=== PATIENT | male | born 1960 | race Caucasian/White ===

== ENCOUNTER → 2019-02-16 | Outpatient (REF) | payer BC | LOC: M LAB REF 10:29 | PROVIDERS: ATTEND Nurse Practitioner Family | DX: R50.9 Fever, unspecified (principal) ==

== ENCOUNTER 2023-07-24 12:41 | Observation (INO) | payer BC ==
[~2023-07-24] VITALS: Ht 193 cm; Wt 103.7 kg
[~2023-07-24 12:41] MED LIST: CLIN1GEL3 TOP; DOXY100T PO; ECOT81TA5 PO; IBUP-1114 PO; ROSU20TA61 PO; SILO8CAP; ZOLP5TAB PO
[2023-07-24] MEDS ORDERED: ACET-683 PO (12:59)
[2023-07-24] MEDS ORDERED: OXYC-517 PO (12:59)
[2023-07-24] MEDS ORDERED: KETO10TAB PO (12:59)
[2023-07-24] MEDS ORDERED: GABA-1171 PO (12:59)
[2023-07-24] MEDS ORDERED: NS 1,000 ML IV ONE ×3 (13:20→16:40)
[2023-07-24] MEDS ORDERED: ONDANSETRON 4MG 2ML VIAL IV ONE (14:10)
[2023-07-24 14:13] LABS: BASO % 0.2 % (0.0-1.0); EOS # 0.1 10^3/uL (0.0-0.5); EOS % 0.7 % (0.0-3.0); HEMATOCRIT 39.3 % (42.0-52.0); HEMOGLOBIN 13.5 g/dl (13.5-17.5); LYMPH # 0.9 10^3/uL (1.5-5.0); LYMPH % 9.9 % (24.0-44.0); MEAN CORPUSCULAR HEMOGLOBIN 31.9 pg (27.0-33.0); MEAN CORPUSCULAR HGB CONC 34.4 g/dl (32.0-36.5); MEAN CORPUSCULAR VOLUME 92.9 fl (80.0-96.0); MONO # 0.6 10^3/uL (0.0-0.8); MONO % 7.3 % (2.0-8.0); NEUTROPHILS # 7.1 10^3/uL (1.5-8.5); NEUTROPHILS % 81.7 % (36.0-66.0); PLATELET COUNT, AUTOMATED 187 10^3/uL (150-450); RED BLOOD COUNT 4.23 10^6/uL (4.30-6.10); WHITE BLOOD COUNT 8.8 10^3/uL (4.0-10.0)
[2023-07-24 14:36] LABS: LIPASE 26 U/L (12-53)
[2023-07-24 14:38] LABS: ALBUMIN 3.7 G/DL (3.2-5.2); ALKALINE PHOSPHATASE 47 U/L (46-116); ALT/SGPT 25 U/L (7.0-40); AMYLASE 26 U/L (30-118); AST/SGOT 33 U/L (<34); BILIRUBIN,DIRECT 0.3 MG/DL (<0.4); BILIRUBIN,TOTAL 0.8 MG/DL (0.3-1.2); BLOOD UREA NITROGEN 10 MG/DL (9-23); CALCIUM LEVEL 8.7 MG/DL (8.3-10.6); CARBON DIOXIDE LEVEL 30 MMOL/L (20-31); CHLORIDE LEVEL 104 MMOL/L (98-107); GLOMERULAR FILTRATION RATE > 60.0 (>49); GLUCOSE, FASTING 96 MG/DL (74-106); SODIUM LEVEL 140 MMOL/L (136-145); TOTAL PROTEIN 6.2 G/DL (5.7-8.2)
[2023-07-24] MEDS ORDERED: ISOVUE-370 76% 100ML VIAL As Ordered ONE (15:30)
[2023-07-24] MEDS ORDERED: METOCLOPRAMIDE INJ 10MG/2ML VIAL IV ONE (16:15)
[2023-07-24] MEDS ORDERED: ACETAMINOPHEN TAB 650MG DOSE (2X325MG) PO PRN (17:00)
[2023-07-24] MEDS ORDERED: KETOROLAC 30 MG/ML 1ML VIAL IV PRN ×2 (17:00)
[2023-07-24] MEDS ORDERED: MOM 30ML SUSPENSION UDC PO PRN (17:00)
[2023-07-24] MEDS ORDERED: ONDANSETRON 4MG ORAL DISINTEGRATING TAB SL PRN (17:00)
[2023-07-24 17:26] LABS: RSV AMPLIFICATION NEGATIVE (NEGATIVE)
[2023-07-24] MEDS ORDERED: HOME MED LIST COMPLETE! XX SCH (18:05)
[2023-07-24 18:10] VITALS: BP 122/72; TEMP 98.4; O2SAT 95
[2023-07-24 20:00] VITALS: BP 128/69; TEMP 98; O2SAT 93
[2023-07-24] MEDS ORDERED: SENNA 8.6 MG TAB (SENOKOT) PO ONE (20:00)
[2023-07-24] MEDS ORDERED: BISACODYL 10MG SUPP PR ONE (20:00)
[2023-07-24] MEDS: DOCUSATE SODIUM 100MG CAPSULE PO SCH (20:10)
[2023-07-25 06:00] VITALS: BP 118/70; TEMP 98.5; O2SAT 93
[2023-07-25] MEDS ORDERED: GABAPENTIN 100 MG CAP PO SCH (06:00)
[2023-07-25 06:37] LABS: HEMATOCRIT 35.1 % (42.0-52.0); MEAN CORPUSCULAR HEMOGLOBIN 31.7 pg (27.0-33.0); MEAN CORPUSCULAR HGB CONC 34.2 g/dl (32.0-36.5); MEAN CORPUSCULAR VOLUME 92.6 fl (80.0-96.0); PLATELET COUNT, AUTOMATED 168 10^3/uL (150-450); RED BLOOD COUNT 3.79 10^6/uL (4.30-6.10); WHITE BLOOD COUNT 7.6 10^3/uL (4.0-10.0)
[2023-07-25 07:01] LABS: BLOOD UREA NITROGEN 12 MG/DL (9-23); CALCIUM LEVEL 7.8 MG/DL (8.3-10.6); CARBON DIOXIDE LEVEL 27 MMOL/L (20-31); CHLORIDE LEVEL 107 MMOL/L (98-107); CREATININE FOR GFR 0.77 MG/DL (0.70-1.30); GLOMERULAR FILTRATION RATE > 60.0 (>49); GLUCOSE, FASTING 92 MG/DL (74-106); SODIUM LEVEL 140 MMOL/L (136-145)
[2023-07-25] MEDS: DOCUSATE SODIUM 100MG CAPSULE PO SCH (08:48)
[2023-07-25] MEDS ORDERED: ASPIRIN 81MG ENTERIC TABLET PO SCH (09:00)
[2023-07-25] MEDS ORDERED: BISACODYL 10MG SUPP PR SCH (09:00)
[2023-07-25] MEDS ORDERED: SENNA 8.6 MG TAB (SENOKOT) PO SCH (09:00)
[2023-07-25] MEDS ORDERED: SENN-50 PO (09:36)
[2023-07-25] MEDS ORDERED: KETO10TAB PO (09:36)
[2023-07-25] MEDS ORDERED: ACETAMINOPHEN 500 MG TAB PO SCH (14:00)
[2023-07-25] MEDS ORDERED: ROSUVASTATIN 10 MG TAB (CRESTOR) PO SCH (21:00)
== END 2023-07-25 11:00 | disposition home or self-care (01) ==
LOC: M ED 12:41 → M ED INP 12:42 → M MS5PR 18:05
PROVIDERS: ADMIT Student in an Organized Health Care Education/Training Program; ATTEND Student in an Organized Health Care Education/Training Program
DX: N13.30 Unspecified hydronephrosis (principal); R11.2 Nausea with vomiting, unspecified; Z85.46 Personal history of malignant neoplasm of prostate; Z92.3 Personal history of irradiation; E78.5 Hyperlipidemia, unspecified; Z98.890 Other specified postprocedural states; Z79.899 Other long term (current) drug therapy; Z79.82 Long term (current) use of aspirin; Z79.891 Long term (current) use of opiate analgesic
CPT/HCPCS: 36415; 74018; 74177; 80047; 80048; 80076; 81001; 82150; 83605; 83690; 85025; 85027; 87631; 93041; 96374; 96375; 99285; J1885; J2405; J2765; Q9967

== ENCOUNTER → 2023-09-09 | Outpatient (CLI) | payer BC ==
[~2023-09-09] MED LIST changes: +ACET-683 PO; +FUROSEMIDE 20MG/2ML VIAL As Ordered ONE; +GABA-1171 PO; +KETO10TAB PO; +OXYC-517 PO; +SENN-50 PO
== END ==
LOC: M RAD 08:03
PROVIDERS: ATTEND Physician Assistant Medical
DX: N13.0 Hydronephrosis with ureteropelvic junction obstruction (principal)

== ENCOUNTER → 2023-11-23 | Outpatient (REF) | payer BC ==
[~2023-11-23] MED LIST changes: -FUROSEMIDE 20MG/2ML VIAL As Ordered ONE; -SILO8CAP; +SILO8CAP3
[2023-11-23 17:48] LABS: C REACTIVE PROTEIN QUANTITATIV < 0.40 MG/DL (<1.0)
[2023-11-23 17:50] LABS: RHEUMATOID FACTOR QUANT 8.6 IU/ML (<14)
== END ==
LOC: M LAB REF 16:30
PROVIDERS: ATTEND Internal Medicine
DX: M15.9 Polyosteoarthritis, unspecified (principal)

== ENCOUNTER → 2024-04-28 | Outpatient (CLI) | payer BC ==
[~2024-04-28] MED LIST changes: -ROSU20TA61 PO; +ROSU20TA86 PO
== END ==
LOC: M RAD 12:56
PROVIDERS: ATTEND Internal Medicine
DX: K40.90 Unilateral inguinal hernia, without obstruction or gangrene, not specified as recurrent (principal)

== ENCOUNTER 2024-08-01 08:28 | Day surgery (SDC) | payer BC ==
[~2024-08-01] VITALS: Ht 193 cm; Wt 99.8 kg
[~2024-08-01 08:28] MED LIST changes: +EZET10TA21 PO; +KETOROLAC 60MG 2ML VIAL As Ordered ONE; +LIDOCAINE 2% 100MG/5ML SDV (FOR ANES.) As Ordered ONE; +MIDAZOLAM INJ 2MG/2ML VIAL As Ordered ONE; +ONDANSETRON 4MG 2ML VIAL As Ordered ONE; +ROCURONIUM BROMIDE 50MG/5ML VIAL As Ordered ONE; +SUGAMMADEX SODIUM 500 MG/5 ML VIAL (BRIDION) As Ordered ONE; +fentaNYL 100 MCG/2 ML INJECTION As Ordered ONE; +propofoL 200 MG/20 ML VIAL As Ordered ONE
[2024-08-01] MEDS: ceFAZolin SOD 2 GM in IV 1 EA IV ONE (09:31)
[2024-08-01] MEDS ORDERED: ACETAMINOPHEN 1000MG/100ML IV BAG As Ordered ONE (09:48)
[2024-08-01] MEDS ORDERED: fentaNYL 100 MCG/2 ML INJECTION IV PRN (10:45)
[2024-08-01] MEDS ORDERED: LR 1,000 ML IV SCH (10:45)
[2024-08-01] MEDS ORDERED: traMADol 50 MG TAB PO PRN (11:05)
[2024-08-01] MEDS ORDERED: NS (Normal Saline) 0.9% 1,000 ML IV SCH (11:10)
[2024-08-01] MEDS: HYDROMORPHONE HCL 0.5 MG/ 0.5 ML SYRINGE IV PRN (11:12)
[2024-08-01] MEDS: ONDANSETRON 4MG 2ML VIAL IV PRN (11:22)
[2024-08-01] MEDS: oxyCODONE 5MG TAB PO PRN (11:24)
[2024-08-01 14:55] VITALS: BP 11/77; TEMP 97; O2SAT 99
== END 2024-08-01 14:56 | disposition home or self-care (01) ==
LOC: M SDC 08:28
PROVIDERS: ATTEND Surgery
DX: K40.90 Unilateral inguinal hernia, without obstruction or gangrene, not specified as recurrent (principal); R06.83 Snoring; E78.00 Pure hypercholesterolemia, unspecified; Z79.899 Other long term (current) drug therapy
CPT/HCPCS: 49650; C1781; J0131; J0665; J0690; J1100; J1171; J1885; J2250; J2405; J3010; S2900

== ENCOUNTER → 2024-08-08 | Outpatient (REF) | payer BC ==
[~2024-08-08] MED LIST changes: -KETOROLAC 60MG 2ML VIAL As Ordered ONE; -LIDOCAINE 2% 100MG/5ML SDV (FOR ANES.) As Ordered ONE; -MIDAZOLAM INJ 2MG/2ML VIAL As Ordered ONE; -ONDANSETRON 4MG 2ML VIAL As Ordered ONE; -ROCURONIUM BROMIDE 50MG/5ML VIAL As Ordered ONE; -SUGAMMADEX SODIUM 500 MG/5 ML VIAL (BRIDION) As Ordered ONE; -fentaNYL 100 MCG/2 ML INJECTION As Ordered ONE; -propofoL 200 MG/20 ML VIAL As Ordered ONE
== END ==
LOC: M LAB REF 16:16
PROVIDERS: ATTEND Internal Medicine
DX: E78.00 Pure hypercholesterolemia, unspecified (principal)